=== PATIENT | male | born 1995 | race Caucasian/White ===

== ENCOUNTER 2020-02-22 15:00 | Emergency (ER) | payer OTHER, SELFPAY ==
[~2020-02-22] VITALS: Ht 170.2 cm; Wt 99.8 kg
[2020-02-22 15:02] VITALS: Ht 170.2 cm; Wt 99.8 kg
[2020-02-22 15:45] VITALS: BP 149/91
== END 2020-02-22 15:45 | disposition home or self-care (01) ==
LOC: ED 15:00
DX: J02.0 Streptococcal pharyngitis (principal); Z20.828 Contact with and (suspected) exposure to other viral communicable diseases
CPT/HCPCS: U0003